=== PATIENT | male | born 2000 ===

== ENCOUNTER 2021-10-04 09:08 | Emergency (ER) | payer SELFPAY ==
[~2021-10-04] VITALS: Ht 167 cm; Wt 71.6 kg
[2021-10-04] MEDS ORDERED: PROM5SYR PO (11:06)
--- NOTE | 2021-10-04 11:07 | ED Cough/URI ---
General Stated Complaint: FLU POSITIVE/BLOODY NOSE/SORE THROAT/FEVER Source: patient Exam Limitations: no limitations History of Present Illness Date Seen by Provider: Oct 04, 2021 Time Seen by Provider: 11:02 Initial Comments To ER by private vehicle with reports that he tested positive for influenza A at [facility] on 10/01/2021. Comes in today because of a productive cough that occasionally has some blood in it. He has been taking Tylenol and NyQuil. Timing/Duration: constant Severity/Quality: productive cough, blood streaked sputum Prior Episodes/Possible Cause: no prior episodes Associated Symptoms: denies symptoms Allergies and Home Medications Allergies Coded Allergies: No Known Drug Allergies (Unverified , 10/04/21) Patient Home Medication List Home Medication List Reviewed: Yes Guaifenesin/Codeine Phosphate (Guaifenesin-Codeine Syrup) 5 Ml Liquid, 5 ML PO Q4H PRN for COUGH Prescribed by: NATASHA CORADO on 10/04/21 1116 Discontinued Medications Promethazine HCl/Codeine (Prometh-Codein 6.25-10 mg/5 ml) 5 Ml Syrup, 5 ML PO Q4H PRN for COUGH Prescribed by: NATASHA CORADO on 10/04/21 1106 Review of Systems Review of Systems Constitutional: see HPI EENTM: see HPI Respiratory: see HPI, cough Cardiovascular: no symptoms reported Genitourinary: no symptoms reported Musculoskeletal: no symptoms reported Skin: no symptoms reported Psychiatric/Neurological: No Symptoms Reported Hematologic/Lymphatic: No Symptoms Reported Immunological/Allergic: no symptoms reported Physical Exam Vital Signs - First Documented 10/04/21 11:02 Temp 36.1 Pulse 88 Resp 20 B/P (MAP) 135/95 (108) Pulse Ox 99 Capillary Refill : Height: '" Weight: lbs. oz. kg; BMI Method: General Appearance: WD/WN, no apparent distress, other (Alert and oriented no distress. Lungs are clear with good air movement heart rate is 92 blood pressure one thirties over eighties and oxygen 98 to 100% on room air.) Eyes: Bilateral Eye Normal Inspection, Bilateral Eye PERRL Neck: non-tender, full range of motion Respiratory: no respiratory distress, no accessory muscle use Gastrointestinal: normal bowel sounds, non tender Neurologic/Psychiatric: alert, normal mood/affect, oriented x 3 Skin: normal color, warm/dry Progress/Results/Core Measures Suspected Sepsis SIRS Temperature: Pulse: Respiratory Rate: Blood Pressure / Mean: Results/Orders My Orders Orders - NATASHA CORADO APRN Chest Pa/Lat (2 View) (10/04/21 11:01) Vital Signs/I&O 10/04/21 11:02 Temp 36.1 Pulse 88 Resp 20 B/P (MAP) 135/95 (108) Pulse Ox 99 Capillary Refill : Departure Communication (Admissions) NAME: LUKE GRIGSBY REC#: [id number] PT STATUS: REG ER : 2000 PHYSICIAN: NATASHA CORADO APRN ADMIT DATE: 10/04/21/ER Draft Date of Exam:10/04/21 CHEST PA/LAT (2 VIEW) CLINICAL INDICATION: Patient with cough and hemoptysis. EXAM: Chest x-ray PA and lateral views. COMPARISON: None. FINDINGS: Lungs/pleura: There is subtle amorphous airspace opacity involving the inferior right perihilar region. The remainder of the lungs are clear. There is no pneumothorax. There is no pleural effusion. Mediastinum: Unremarkable. Pulmonary vasculature: Unremarkable. Heart: Unremarkable. Bones/extrathoracic soft tissue: Unremarkable. IMPRESSION: There is subtle amorphous airspace opacity involving the inferior right perihilar region which may represent lung infiltrate. Dictated on workstation # [id number] Dict: 10/04/21 1119 Trans: 10/04/21 1127 [id number] Interpreted by: JOSEPH NORMAN MD Electronically signed by: Impression Primary Impression: Hemoptysis Additional Impressions: Influenza Pneumonia Disposition: 01 HOME, SELF-CARE Condition: Stable Departure-Patient Inst. Decision time for Depature: 11:05 Referrals: NO,LOCAL PHYSICIAN (PCP) Primary Care Physician Patient Instructions: Coughing up Blood, Flu Add. Discharge Instructions: 1. Medication as directed. Return to ER for any concerns. Scripts Doxycycline Hyclate (Doxycycline Hyclate) 100 Mg Tablet 100 MG PO BID, #14 TAB 0 Refills Prov: NATASHA CORADO APRN 10/04/21 Prednisone (Prednisone) 20 Mg Tab 40 MG PO DAILY, #8 TAB 0 Refills Prov: NATASHA CORADO APRN 10/04/21 Guaifenesin/Codeine Phosphate (Guaifenesin-Codeine Syrup) 5 Ml Liquid 5 ML PO Q4H PRN for COUGH, #60 EA Prov: NATASHA CORADO APRN 10/04/21 Work/School Note: Work Release Form Date Seen in the Emergency Department: Oct 04, 2021 Return to Work: Oct 06, 2021 NATASHA CORADO APRN Oct 04, 2021 11:07
[2021-10-04] MEDS ORDERED: GUAI5LIQ PO (11:16)
--- NOTE | 2021-10-04 11:27 | Diagnostic Imaging Report ---
CLINICAL INDICATION: Patient with cough and hemoptysis. EXAM: Chest x-ray PA and lateral views. COMPARISON: None. FINDINGS: Lungs/pleura: There is subtle amorphous airspace opacity involving the inferior right perihilar region. The remainder of the lungs are clear. There is no pneumothorax. There is no pleural effusion. Mediastinum: Unremarkable. Pulmonary vasculature: Unremarkable. Heart: Unremarkable. Bones/extrathoracic soft tissue: Unremarkable. IMPRESSION: There is subtle amorphous airspace opacity involving the inferior right perihilar region which may represent lung infiltrate. Dictated by: Dictated on workstation # [id number]
[2021-10-04] MEDS ORDERED: PRD20T PO (11:37)
[2021-10-04] MEDS ORDERED: DOXY100T2 PO (11:37)
[2021-10-04 11:43] VITALS: BP 124/90
== END 2021-10-04 11:42 | disposition home or self-care (01) ==
LOC: ER 09:11
DX: R04.2 Hemoptysis (principal); J11.1 Influenza due to unidentified influenza virus with other respiratory manifestations; J18.9 Pneumonia, unspecified organism
CPT/HCPCS: 71046